=== PATIENT | male | born 1980 | race Caucasian/White ===

== ENCOUNTER → 2019-01-02 | Outpatient (CLI) | payer OTHER ==
[~2019-01-02] MED LIST: AMOXICILLIN875 MG; APAP/CODEINE ELI5 ML OR; PREDNISONE 20 M20 M1 PO
== END ==
LOC: M.MRI 06:58
DX: S83.242A Other tear of medial meniscus, current injury, left knee, initial encounter (principal); M71.22 Synovial cyst of popliteal space [Baker], left knee; M25.462 Effusion, left knee; X58.XXXA Exposure to other specified factors, initial encounter; Y93.53 Activity, golf; Y92.89 Other specified places as the place of occurrence of the external cause; Y99.8 Other external cause status

== ENCOUNTER → 2019-11-03 | Outpatient (CLI) | payer OTHER ==
--- NOTE | 2019-11-03 17:24 | EXE ---
[place] [address] STRESS ECHOCARDIOGRAM Name: EDMUNDO ARRINGTON Room: [facility]#: [id number] Admission: 11/03/19 Attend Phys: Rudy Frazier Discharge: Date of : 78 Date of Service: 11/03/19 1723 Report #: [id number] THIS REPORT FOR: cc: Yang Adorno,Jw Kwong MD [facility] ~ APPROVED REPORT Study performed: 11/03/2019 13:02:38 Exam: Stress Echocardiogram Indication: Chest pain , Dyspnea, Abnormal EKG, Dizziness, Palpitations Patient Location: Out-Patient Stress Nurse: Bhumika Lehman RN Supervising Physician: Jw Liz MD Ht: 5 ft 5 in HR: 72 bpm BP: 113/76 mmHg Medical History Cardiac Risk Factors: FHX of CAD Procedure The patient underwent an Exercise Stress Test using the Cosme Protocol. Blood pressure, heart rate, and EKG were monitored. An Echocardiogram was performed by staging technician in four stages in quad fashion. At peak stress, four selected images were obtained and placed side by side with resting images for comparison. Stress Test Details Stress Test: Exercise stress testing was performed using a Cosme protocol. HR Resting HR: 72 bpm Max Heart Rate (APMHR): 180 bpm Max HR Achieved: 171 bpm Target HR (85% APMHR): 153 bpm % of APMHR: 95 Recovery HR: 92 bpm HR response to stress: Normal HR response to stress BP Resting BP: 113/76 mmHg Max BP: 204/63 mmHg Recovery BP: 114/89 [place] [address] STRESS ECHOCARDIOGRAM Name: EDMUNDO ARRINGTON Room: [facility]#: [id number] Admission: 11/03/19 Attend Phys: Rudy Frazier Discharge: Date of : 78 Date of Service: 11/03/19 1723 Report #: [id number] BP response to stress: Normal blood pressure response to stress. ECG Resting ECG: Sinus Rhythm Stress ECG: Sinus Tachycardia ST Change: None Arrhythmia: None Recovery ECG: Sinus Rhythm Recovery ST Change: None Recovery Arrhythmia: None Clinical Reason for Termination: Completed protocol Exercise duration: 8 min 37 sec Highest Stage Achieved: Stage 3: 3.4 mph at 14% grade. Exercise capacity: 10.16 METs The patient tolerated standard Cosme protocol exercise without significant cardiac symptom. Stress ECG Conclusion Baseline twelve-lead EKG shows sinus rhythm without significant ST segment or T wave abnormality EKGs obtained during and post exercise shows sinus rhythm and sinus tachycardia with no significant ST segment or T wave changes when compared to baseline. There were no stress-induced arrhythmias. Pre-Stress Echo The resting Echocardiogram showed normal left ventricular contractility with an estimated Ejection Fraction of about 55-60%. The resting echocardiogram demonstrated normal wall motion in all wall segments. Post-Stress Echo The stress Echocardiogram showed normal left ventricular contractility with an estimated Ejection Fraction of about >70%. Compared to rest, there were no stress-induced wall motion abnormalities. Clinical No clinical or ECG evidence for ischemia. Conclusion Clinical Response: Non-ischemic Exercise Capacity: Average Stress ECG Response: Non-ischemic Stress Echo Images: [place] [address] STRESS ECHOCARDIOGRAM Name: EDMUNDO ARRINGTON Room: [facility]#: [id number] Admission: 11/03/19 Attend Phys: Rudy Frazier Discharge: Date of : 78 Date of Service: 11/03/191722 Report #: [id number] The left ventricle is normal in size and wall thickness in both the rest and stress images. Other Information Study Quality: Good <Conclusion> The left ventricle is normal in size and wall thickness in both the rest and stress images. <ELECTRONICALLY SIGNED> By: Jw Liz MD, [facility] 11/03/191722 22 1723 Jw Liz MD, FACC /INF
== END ==
LOC: M.CRD 11-02 13:00
PROVIDERS: ATTEND Family Medicine
DX: R42 Dizziness and giddiness (principal); R07.89 Other chest pain

== ENCOUNTER → 2020-06-17 | Outpatient (CLI) | payer OTHER | LOC: M.NUC 12:36 | PROVIDERS: ATTEND Internal Medicine Gastroenterology | DX: R10.9 Unspecified abdominal pain (principal) ==